=== PATIENT | female | born 1980 | race Caucasian/White ===

== ENCOUNTER → 2023-04-10 08:12 | Outpatient (CLI) | payer BC, SELFPAY ==
--- NOTE | 2023-04-10 08:19 | XR_ITS ---
FINAL REPORT CLINICAL HISTORY: Foot Pain, radiates up into ankle FINDINGS: 3 views of the left foot were obtained. There is no acute fracture or dislocation. There is a small plantar spur. There is a small Adrienne deformity. The joint spaces are intact. The soft tissues are unremarkable. IMPRESSION: No acute process. Reviewed, Interpreted and Dictated by Dru Smith MD Transcribed by Kvng Pinto Authenticated and [facility]
--- NOTE | 2023-04-10 08:19 | XR_ITS ---
FINAL REPORT CLINICAL HISTORY: Foot Pain FINDINGS: 3 views of the right foot were obtained. There is no acute fracture or dislocation. There is a small plantar spur. There is a small Adrienne deformity. The joint spaces are intact. The soft tissues are unremarkable. IMPRESSION: No acute process. Reviewed, Interpreted and Dictated by Dur Smith MD Transcribed by Kvng Pinto Authenticated and . [facility]
== END ==
PROVIDERS: PCP Internal Medicine; Visit Provider Podiatrist
DX: M79.671 Pain in right foot (principal); M79.672 Pain in left foot
CPT/HCPCS: 73630